=== PATIENT | male | born 1995 | race Caucasian/White ===

== ENCOUNTER 2016-08-22 17:04 | Emergency (ER) | payer OTHER ==
[~2016-08-22 17:04] MED LIST: AMOXICILLIN PO; ATIVAN INJ; BENADRYL PO; CLONIDINE TOP; FLUMADINE; KEFLEX500 MG PO; NAPROSYN250 M1 PO; NO MEDICATIONS; PHENERGAN DM1 ML PO; PHENERGAN PO; PHENERGAN25 M1 PO; TAMIFLU75 M1 PO; TAMIFLU75 MG PO; ULTRAM PO; VOLTAREN75 MG PO; ZITHROMAX PO; ZOLOFT PO; [UNRECOGNIZED DRUG - OTHER] PO
== END 2016-08-22 17:19 | disposition home or self-care (01) ==
LOC: SED 17:04
DX: F10.129 Alcohol abuse with intoxication, unspecified (principal)
CPT/HCPCS: 99282

== ENCOUNTER 2016-12-21 00:08 | Emergency (ER) | payer OTHER ==
--- NOTE | ~2016-12-21 | CR126 ---
[facility]. [facility] [place] A Service of [facility] RADIOLOGY TEXT RESULTS PATIENT: MICHAEL MONTE LOCATION: SED : 95 UNIT #: [id number] AGE: [address]: James Coley SEX: M ORDER DR: [id number] [place] [id number] E MR#: [id number] Acc #: [id number] NAME: MICHAEL MONTE : 1995 SEX: M STUDY DATE/TIME: 12/21/2016 0:41 UNIT: SED ROOM: STUDY DESCRIPTION: CR Foot Complete Min 3 View Lt Attending Physician: James Coley P.A.-C. Ordering Physician: James Coley P.A.-C. Primary Care Physician: No Primary Care Physician MEDICAL IMAGING REPORT This report is preliminary unless electronic signature is present. EXAM Left foot. INDICATIONS Laceration. Possible foreign body. Stepped on glass. FINDINGS Three views of the left foot without comparison. There is no acute fracture or dislocation. Alignment is anatomic. No foreign body. IMPRESSION No foreign body. Dictated by... Leodan Godinez M.D. THIS IS AN ELECTRONICALLY VERIFIED REPORT Leodan Godinez M.D. at 12/21/2016 10:47 PM ANA/ralph TD: 12/21/2016 18:43 JOB #: [id number] MEDICAL IMAGING REPORT Page 1 of 1
--- NOTE | ~2016-12-21 | CR127 ---
[facility]. [facility] A Service of [facility] & [facility] RADIOLOGY TEXT RESULTS PATIENT: MICHAEL MONTE LOCATION: SED : 95 UNIT #: [id number] AGE: [address]: James Coley SEX: M ORDER DR: [id number] [place] [id number] E MR#: [id number] Acc #: [id number] NAME: MICHAEL MONTE : 1995 SEX: M STUDY DATE/TIME: 12/21/2016 0:47 UNIT: SED ROOM: STUDY DESCRIPTION: CR Foot Complete Min 3 View Rt Attending Physician: James Coley P.A.-C. Ordering Physician: James Coley P.A.-C. Primary Care Physician: No Primary Care Physician MEDICAL IMAGING REPORT This report is preliminary unless electronic signature is present. EXAM Right foot. INDICATIONS Laceration. Stepped on glass. Foot pain. FINDINGS Three views of the right foot without comparison. There is no acute fracture or dislocation. No foreign body. IMPRESSION Negative right foot. Dictated by... Leodan Godinez M.D. THIS IS AN ELECTRONICALLY VERIFIED REPORT Leodan Godinez M.D. at 12/21/2016 10:47 PM ANA/ralph TD: 12/21/2016 18:30 JOB #: [id number] MEDICAL IMAGING REPORT Page 1 of 1
== END 2016-12-21 01:23 | disposition home or self-care (01) ==
LOC: SED 00:08
DX: S91.312A Laceration without foreign body, left foot, initial encounter (principal); S91.311A Laceration without foreign body, right foot, initial encounter; F17.210 Nicotine dependence, cigarettes, uncomplicated; W25.XXXA Contact with sharp glass, initial encounter; Y92.73 Farm field as the place of occurrence of the external cause
CPT/HCPCS: 73630; 90471; 90715; 99283

== ENCOUNTER 2017-01-02 04:29 | Emergency (ER) | payer OTHER ==
[~2017-01-02] VITALS: Ht 175.3 cm; Wt 65.8 kg
[2017-01-02 06:08] LABS: BUN/CREATININE RATIO 8.75; CALCIUM SERUM 9.1 mg/dL (8.4-10.2); CREATININE SERUM 0.8 mg/dL (0.6-1.4); GLOM FILT RATE Estimated 127.7 mL/min (>60)
[2017-01-02 06:09] LABS: POTASSIUM 2.8 mmol/L (3.5-5.1)
[2017-01-02 06:11] LABS: AMPHETAMINE NEG (NEG); BARBITURATES NEG (NEG); BENZODIAZEPINES POS (NEG); COCAINE NEG (NEG); MARIJUANA NEG (NEG); OPIATES NEG (NEG); TRICYCLIC ANTIDEPRESSANTS NEG (NEG); U METHADONE NEG (NEG)
== END 2017-01-02 07:09 | disposition home or self-care (01) ==
LOC: SED 04:29
PROVIDERS: Emergency Medicine
DX: F41.1 Generalized anxiety disorder (principal); F10.10 Alcohol abuse, uncomplicated; Y90.6 Blood alcohol level of 120-199 mg/100 ml; F19.10 Other psychoactive substance abuse, uncomplicated; E87.6 Hypokalemia
CPT/HCPCS: 36415; 80048; 80307; 83735; 96365; 96375; 99283; G0480; J2060; J3411

== ENCOUNTER 2017-01-02 11:24 | Emergency (ER) | payer OTHER | END 2017-01-02 12:50 | disposition home or self-care (01) | LOC: SED 11:24 | DX: K29.00 Acute gastritis without bleeding (principal); F10.10 Alcohol abuse, uncomplicated; F41.9 Anxiety disorder, unspecified; F17.200 Nicotine dependence, unspecified, uncomplicated | CPT/HCPCS: 99283 ==